=== PATIENT | male | born 1965 | race Caucasian/White ===

== ENCOUNTER 2017-01-01 21:48 | Inpatient (IN) | payer OTHER ==
[~2017-01-01] VITALS: Ht 188 cm; Wt 107.2 kg
--- NOTE | 2017-01-01 23:51 | ERA ---
ER Documentation Chief Complaint Date/Time DATE: 01/01/17 TIME: 23:50 Chief Complaint LEFT ARM CELLULITIS AND ARM SWELLING WITH DRAINAGE FROM IVD USE. HPI The patient is a 51-year-old male, presenting with left arm redness, pain, yellowish discharge after IV drug abuse about a week ago. He denies fever, chills, neck pain, chest pain, abdominal pain, vomiting, dysuria, diarrhea, constipation. He smokes, drinks, does illicit drug Past medical history/surgical history: ROS All systems reviewed and are negative except as per history of present illness. Allergies Allergies: Coded Allergies: No Known Allergy (Unverified , 01/01/17) PMhx/Soc Medical and Surgical Hx: pt denies Surgical Hx History of Surgery: No Anesthesia Reaction: No Hx Neurological Disorder: No Hx Respiratory Disorders: No Hx Cardiac Disorders: No Hx Psychiatric Problems: No Hx Miscellaneous Medical Probl: Yes (cellulitis, unhealing abrasions/ skin tears) Hx Alcohol Use: No Hx Substance Use: Yes (distant hx of IV drug use) Hx Tobacco Use: Yes (3-5 cigs/ day) Smoking Status: Current every day smoker Physical Exam Vitals Vital Signs Date Time Temp Pulse Resp B/P Pulse Ox O2 Delivery O2 Flow Rate FiO2 01/02/17 01:55 98.9 93 12 121/73 99 Room Air 01/01/17 22:03 99.3 102 21 129/78 99 Physical Exam Const: No acute distress. Head: Atraumatic. Eyes: Normal Conjunctiva. ENT: Normal External Ears, Nose and Mouth. Neck: Full range of motion. No meningismus. Resp: Clear to auscultation bilaterally. Cardio: Regular rate and rhythm, no murmurs. Abd: Soft, non distended, normal bowel sounds, non tender. Skin: Chest and back erythematous, no vesicle, no pustules, no petechia Back: No midline or flank tenderness. Ext: Left arm is erythematous, edematous with yellowish discharge Neur: Awake and alert. No focal deficit Psych: Normal Mood and Affect. Result Diagram: 01/02/17 0135 01/02/17134 Results 24 hrs Laboratory Tests Test 01/02/17 01:35 Alanine Aminotransferase (ALT/SGPT) 174IU/L Albumin 2.8g/dl Albumin/Globulin Ratio 0.49 Alkaline Phosphatase 517IU/L Anion Gap 19 Aspartate Amino Transf (AST/SGOT) 693IU/L Basophils # 0.010^3/ul Basophils % 0.2% Blood Urea Nitrogen 18mg/dl Calcium Level 8.0mg/dl Carbon Dioxide Level 26mmol/L Chloride Level 86mmol/L Creatinine 0.79mg/dl Direct Bilirubin 1.80mg/dl Eosinophils # 0.110^3/ul Eosinophils % 0.3% Globulin 5.70g/dl Glucose Level 81mg/dl Hematocrit 36.1% Hemoglobin 12.4g/dl Indirect Bilirubin 0.8mg/dl Lymphocytes # 1.610^3/ul Lymphocytes % 6.1% Mean Corpuscular Hemoglobin 29.7pg Mean Corpuscular Hemoglobin Concent 34.3g/dl Mean Corpuscular Volume 86.6fl Mean Platelet Volume 10.4fl Monocytes # 1.110^3/ul Monocytes % 4.2% Neutrophils # 22.110^3/ul Neutrophils % 85.5% Nucleated Red Blood Cells # 0.010^3/ul Nucleated Red Blood Cells % 0.0/100WBC Platelet Count 51060^3/UL Potassium Level 4.6mmol/L Red Blood Count 4.1710^6/ul Red Cell Distribution Width 13.4% Sodium Level 126mmol/L Total Bilirubin 2.6mg/dl Total Protein 8.5g/dl Troponin I < 0.012ng/ml White Blood Count 25.810^3/ul Current Medications Medications (Trade) Dose Ordered Sig/[place] Route PRN Reason Start Time Stop Time Status Last Admin Dose Admin Vancomycin HCl 250 ml @ 125 mls/hr ONCE IVPB 01/02/17 00:30 01/02/17 02:29 DC Piperacillin Sod/ Tazobactam Sod (Zosyn 3.375gm/ 100 ml (Pmx)) 100 ml @ 200 mls/hr ONCE ONCE IVPB 01/02/17 00:30 01/02/17 00:59 DC Lidocaine (Xylocaine 1% (Mdv) 20 ml) 20 ml ONCE ONCE SC 01/02/17 01:30 01/02/17 01:31 DC Procedures/[place] [id number] Radiology Main Line: [phone] DIAGNOSTIC IMAGING REPORT Patient: CALIXTO HARRY : 1965 Age: 51 Sex: M MR #: [id number] DOS: 01/01/17 2359 Ordering MD: JACKSON MCDONNELL MD Location: E/R Room/Bed: PROCEDURE: XR Chest. CLINICAL INDICATION: Possible sepsis. TECHNIQUE: Single frontal view of the chest was obtained COMPARISON: None FINDINGS: The heart and mediastinum are within normal limits. The lungs are clear. There is no pleural effusion or pneumothorax. IMPRESSION: No acute disease. RPTAT: [facility]U Cristian Purcell, Physician Date Time Electronically viewed and signed by Crsitian Purcell Physician on 01/02/2017 01:49 RS/ CC: JACKSON MCDONNELL MD [place] [id number] Radiology Main Line: [phone] DIAGNOSTIC IMAGING REPORT Patient: CALIXTO HARRY : 1965 Age: 51 Sex: M MR #: [id number] DOS: 01/02/17 0000 Ordering MD: JACKSON MCDONNELL MD Location: E/R Room/Bed: PROCEDURE: US Upper extremity Venous. CLINICAL INDICATION: Left upper extremity swelling. Possible deep venous thrombosis. TECHNIQUE: Multiple sonographic images of the left upper extremity deep venous system was obtained utilizing grayscale, color-flow, compressive sonography and doppler imaging with augmentation. COMPARISON: None. FINDINGS: There is normal compressibility / flow within the left internal jugular, subclavian, axillary, brachial, radial, ulnar, cephalic, and basilic veins. IMPRESSION: No sonographic evidence for deep venous thrombosis of the left upper extremity. RPTAT:HJJR Rome Palmer, Physician Date Time Electronically viewed and signed by Rome Palmer, Physician on 01/02/2017 01:00 JR/ CC: JACKSON MCDONNELL MD EKG: Read by emergency physician Rate/Rhythm: Normal Sinus Rhythm 91 beats/min QRS, ST, T-waves: No ST elevation, no T inversion, low voltage QRS Impression: Abnormal EKG MEDICAL MAKING DECISION: The patient is a 51-year-old male, presenting with acute left upper extremity, chest, back cellulitis, acute hyponatremia. He was treated with vancomycin IV, Zosyn IV. Lactic acid level is pending at the time of dictation. The differential diagnoses considered include but are not limited to fasciitis, abscess, gangrene, endocarditis Departure Diagnosis: Primary Impression: Cellulitis of left upper extremity Additional Impressions: Cellulitis of chest wall Cellulitis of back Anemia Thrombocytopenia Hyponatremia Abnormal LFTs Condition: Stable Comments I discussed the findings with the patient. I discussed the patient with the on- call hospitalist Dr. Ross who was made aware of the lab, the treatment, the patient condition. The patient is admitted to medical surgery bed at 3:15 AM JACKSON MCDONNELL MD Jan 01, 2017 23:50
[2017-01-02] MEDS ORDERED: PIPER-TAZO 3.375 GM IV (PMX) 100 ML IVPB ONE (00:30)
[2017-01-02] MEDS ORDERED: VANCOMYCIN 1 GM (PMX) 250 ML IVPB SCH (00:30)
--- NOTE | 2017-01-02 01:00 | RADRPT ---
PROCEDURE: US Upper extremity Venous. CLINICAL INDICATION: Left upper extremity swelling. Possible deep venous thrombosis. TECHNIQUE: Multiple sonographic images of the left upper extremity deep venous system was obtained utilizing grayscale, color-flow, compressive sonography and doppler imaging with augmentation. COMPARISON: None. FINDINGS: There is normal compressibility / flow within the left internal jugular, subclavian, axillary, brach ial, radial, ulnar, cephalic, and basilic veins. IMPRESSION: No sonographic evidence for deep venous thrombosis of the left upper extremity. RPTAT:HJJR Physician Brandon Date Time Electronically viewed and signed by Physician Brandon on 01/02/2017 01:00 /
[2017-01-02] MEDS ORDERED: LIDOCAINE 1% (MDV) 20 ML INJ SC ONE ×2 (01:30→05:30)
[2017-01-02 01:46] LABS: ABNORMAL IP MESSAGE 1; ADD SCAN DIFF NO; BASOPHILS % 0.2 % (0.0-2.0); EOSINOPHILS # 0.1 10^3/ul (0.0-0.5); EOSINOPHILS % 0.3 % (0.0-7.0); HEMATOCRIT 36.1 % (42.0-52.0); HEMOGLOBIN 12.4 g/dl (14.0-18.0); LYMPHOCYTES # 1.6 10^3/ul (0.8-2.9); LYMPHOCYTES % 6.1 % (15.0-51.0); MEAN CORPUSCULAR HEMOGLOBIN 29.7 pg (29.0-33.0); MEAN CORPUSCULAR HGB CONC 34.3 g/dl (32.0-37.0); MEAN CORPUSCULAR VOLUME 86.6 fl (82.0-101.0); MEAN PLATELET VOLUME 10.4 fl (7.4-10.4); MONOCYTE # 1.1 10^3/ul (0.3-0.9); MONOCYTES % 4.2 % (0.0-11.0); NEUTROPHIL # 22.1 10^3/ul (1.6-7.5); NEUTROPHILS % 85.5 % (39.0-77.0); PLATELET COUNT 133 10^3/UL (140-415); RED BLOOD COUNT 4.17 10^6/ul (4.70-6.10); RED CELL DISTRIBUTION WIDTH 13.4 % (11.5-14.5); WHITE BLOOD COUNT 25.8 10^3/ul (4.8-10.8)
--- NOTE | 2017-01-02 01:50 | RADRPT ---
PROCEDURE: XR Chest. CLINICAL INDICATION: Possible sepsis. TECHNIQUE: Single frontal view of the chest was obtained COMPARISON: None FINDINGS: The heart and mediastinum are within normal limits. The lungs are clear. There is no pleural effusion or pneumothorax. IMPRESSION: No acute disease. RPTAT: UU Physician Jaya Date Time Electronically viewed and signed by Cristian Purcell Physician on 01/02/2017 01:49 RS/
[2017-01-02 01:56] LABS: ALBUMIN 2.8 g/dl (3.3-4.9); CHLORIDE 86 mmol/L (97-110); SODIUM 126 mmol/L (135-144)
[2017-01-02 01:57] LABS: POTASSIUM 4.6 mmol/L (3.5-5.1)
[2017-01-02 01:58] LABS: ASPARTATE AMINO TRANSFERASE 693 IU/L (15-46); BILIRUBIN,INDIRECT 0.8 mg/dl (0-1.1); BILIRUBIN,TOTAL 2.6 mg/dl (0.2-1.3); CREATININE 0.79 mg/dl (0.61-1.24)
[2017-01-02 01:59] LABS: ALANINE AMINOTRANSFERASE 174 IU/L (13-69); ALBUMIN/GLOBULIN RATIO 0.49; ALKALINE PHOSPHATASE 517 IU/L (42-121); ANION GAP 19 (8-16); BLOOD UREA NITROGEN 18 mg/dl (7-20); CARBON DIOXIDE 26 mmol/L (21-31); GLUCOSE 81 mg/dl (70-220); TOTAL PROTEIN 8.5 g/dl (6.1-8.1)
[2017-01-02 02:44] LABS: TROPONIN-I < 0.012 ng/ml (0.00-0.12)
[2017-01-02 03:30] LABS: ADD UMIC YES; URINE BILIRUBIN (Dip) 2+ (NEGATIVE); URINE BLOOD (Dip) TRACE (NEGATIVE); URINE COLOR AMBER (YELLOW); URINE GLUCOSE (Dip) NEGATIVE (NEGATIVE); URINE KETONES (Dip) NEGATIVE (NEGATIVE); URINE LEUKOCYTE ESTERASE (Dip) NEGATIVE (NEGATIVE); URINE NITRITE (Dip) NEGATIVE (NEGATIVE); URINE TOTAL PROTEIN (Dip) NEGATIVE (NEGATIVE); URINE UROBILINOGEN (Dip) >8.0 E.U./dL (0.1-1.0)
[2017-01-02 03:38] LABS: ICTOTEST POSITIVE (NEGATIVE)
[2017-01-02 03:39] LABS: BACTERIA,URINE RARE; SQUAMOUS EPITHELIAL CELL,UR RARE; URINE RBCS 0-2 /HPF (0)
[2017-01-02 03:49] LABS: INR 1.33; PARTIAL THROMBOPLASTIN TIME 30.9 Sec (25.0-35.0); PROTIME 16.6 Sec (12.2-14.2); PT RATIO 1.3
[2017-01-02 04:26] VITALS: TEMP 98.9
[2017-01-02 04:53] VITALS: Ht 188 cm; Wt 107.2 kg
[2017-01-02 04:54] VITALS: BP 111/67; PULSE 98; RESP 18
[2017-01-02] MEDS ORDERED: ACETAMINOPHEN 325 MG TAB PO PRN (05:30)
[2017-01-02] MEDS ORDERED: LORAZEPAM 2 MG INJ IM PRN (05:30)
[2017-01-02 05:41] VITALS: BP 111/67; RESP 20
[2017-01-02] MEDS: CLINDAMYCIN 300 MG INJ IM SCH ×3 (06:00→14:50)
[2017-01-02] MEDS: CEPHALEXIN 500 MG CAP PO SCH ×4 (06:00→17:11)
[2017-01-02 07:38] VITALS: BP 110/51; RESP 18
--- NOTE | 2017-01-02 11:41 | HP ---
Date/Time of Note Date/Time of Note DATE: 01/02/17 TIME: 11:34 Assessment/Plan Lines/Catheters IV Catheter Type (from Nrs): Saline Lock Urinary Cath still in place: No Assessment/Plan Assessment/Plan IMPRESSION 1. Left arm wound/cellulitis, s/p IVDU - Pt does not have peripheral line. Will start IV abx once PICC line is placed. In the meantime, oral abx - f/u culture results - pain mgmt 2. Sepsis 2/2 above - mgmt as above 3. IVDU - SW to help pt find facilities for his addiction 4. Abnormal LFTs - will check Hep panel - f/u RUQ u/s 5. Hyponatremia -NS IV HPI/ROS Admit Date/Time Admit Date/Time Jan 02, 2017 at 03:10 Hx of Present Illness The patient is a 51-year-old male, presenting with left arm redness, pain, yellowish discharge after IV drug abuse about a week ago. He denies fever, chills, neck pain, chest pain, abdominal pain, vomiting, dysuria, diarrhea, constipation. He smokes, drinks, does illicit drug PMH/Family/Social Social History Smoking Status: Current every day smoker Exam/Review of Systems Vital Signs Vitals Vital Signs Date Time Temp Pulse Resp B/P Pulse Ox O2 Delivery O2 Flow Rate FiO2 01/02/17 07:38 98.0 82 18 110/51 98 01/02/17 04:54 Room Air Intake and Output 01/01/17 01/01/17 01/02/17 15:00 23:00 07:00 Intake Total 240 ml Output Total 300 ml Balance -60 ml Labs Result Diagram: 01/02/17 0135 01/02/17 0135 Medications Medications Current Medications Clindamycin Phosphate (Cleocin) 600 mg Q8 IM Last administered on 01/02/17 09: 45; Admin Dose 600 MG; Start 01/02/17 at 06:00 Cephalexin (Keflex) 500 mg Q6 PO Last administered on 01/02/17 09:45; Admin Dose 500 MG; Start 01/02/17 at 06:00 Acetaminophen (Tylenol Tab) 650 mg Q4H PRN PO PAIN AND OR ELEVATED TEMP; Start 01/02/17 at 05:30 Lorazepam (Ativan) 1 mg Q2H PRN IM AGITATIONS; Start 01/02/17 at 05:30 CATHY GALLAGHER MD Jan 02, 2017 11:40
[2017-01-02 11:53] LABS: HAAIG REFLEX REFLEX FILED
[2017-01-02] MEDS: SODIUM CHLORIDE 1 GM TAB PO SCH ×3 (13:00→20:19)
[2017-01-02 13:27] LABS: HEPATITIS B CORE ANTIBODY NEGATIVE (NEGATIVE)
[2017-01-02] MEDS ORDERED: VANCOMYCIN IV PER PHARMACY XX SCH (17:30)
[2017-01-02] MEDS: CEFEPIME 2GM/50 ML (PMX) 50 ML IVPB SCH (18:57)
[2017-01-02 19:05] VITALS: BP 120/57; RESP 20
[2017-01-02] MEDS ORDERED: VANCOMYCIN 2 GM in SOD CHLORIDE 0.9% 500 ML IVPB SCH (20:00)
[2017-01-03 06:02] LABS: ADD SCAN DIFF NO
[2017-01-03 06:15] LABS: BASOPHILS % 0.2 % (0.0-2.0); EOSINOPHILS # 0.1 10^3/ul (0.0-0.5); EOSINOPHILS % 0.9 % (0.0-7.0); HEMATOCRIT 34.7 % (42.0-52.0); HEMOGLOBIN 11.4 g/dl (14.0-18.0); LYMPHOCYTES # 1.2 10^3/ul (0.8-2.9); MEAN CORPUSCULAR HEMOGLOBIN 29.8 pg (29.0-33.0); MEAN CORPUSCULAR HGB CONC 32.9 g/dl (32.0-37.0); MEAN CORPUSCULAR VOLUME 90.6 fl (82.0-101.0); MONOCYTE # 0.7 10^3/ul (0.3-0.9); MONOCYTES % 5.8 % (0.0-11.0); NEUTROPHIL # 9.9 10^3/ul (1.6-7.5); NEUTROPHILS % 81.2 % (39.0-77.0); PLATELET COUNT 119 10^3/UL (140-415); RED BLOOD COUNT 3.83 10^6/ul (4.70-6.10); RED CELL DISTRIBUTION WIDTH 13.8 % (11.5-14.5); WHITE BLOOD COUNT 12.2 10^3/ul (4.8-10.8)
[2017-01-03 08:00] VITALS: BP 112/68; PULSE 67; RESP 18
[2017-01-03] MEDS: VANCOMYCIN 1.75 GM in SOD CHLORIDE 0.9% 500 ML IVPB SCH ×3 (08:00→21:10)
[2017-01-03 08:29] LABS: POTASSIUM 4.1 mmol/L (3.5-5.1)
[2017-01-03 08:31] LABS: CREATININE 0.78 mg/dl (0.61-1.24)
[2017-01-03 08:32] LABS: CALCIUM 7.5 mg/dl (8.4-10.2); MAGNESIUM 2.4 mg/dl (1.7-2.5); PHOSPHORUS 4.9 mg/dl (2.5-4.9)
[2017-01-03] MEDS: SODIUM CHLORIDE 1 GM TAB PO SCH (09:52)
[2017-01-03] MEDS: CEFEPIME 2GM/50 ML (PMX) 50 ML IVPB SCH ×2 (09:52→20:36)
--- NOTE | 2017-01-03 10:06 | RADRPT ---
PROCEDURE: US Abdomen and Retroperitoneum. CLINICAL INDICATION: Abdominal pain. TECHNIQUE: Multiple real-time longitudinal and transverse images were acquired of the patient's ab domen and retroperitoneum utilizing a curved array transducer. COMPARISON: No prior studies are available for comparison. FINDINGS: The liver is normal in size and diffusely heterogeneous in echogenicity. The liver has a normal smo oth surface. There is no focal hepatic lesion. Color Doppler and pulsed Doppler sonography demonstra te normal antegrade flow in the portal vein. The gallbladder is normal with no stones or wall thickening. The bile ducts are normal with the common bile duct measuring 4.2 mm in diameter. The spleen is enlarged measuring 15.9 cm in length. There is no focal splenic lesion. The pancreas is partially seen and is unremarkable. There is no free fluid. The right kidney measures 11.0 x 5.4 x 5.3 cm and the left kidney measures 12.4 x 5.6 x 5.3 cm. There is no renal mass. There is no hydronephrosis or calculus. The proximal abdominal aorta is not dilated. The mid and distal abdominal aorta are not visualized due to overlying bowel gas. IMPRESSION: 1. Heterogeneous liver which may indicate an infiltrative process. 2. Splenomegaly. 3. Mid and distal abdominal aorta not visualized. 4. Otherwise normal ultrasound of the abdomen and retroperitoneum. RPTAT: QQ .Modesto Bruce MD, Date Time Electronically viewed and signed by .Modesto Bruce MD, on 01/03/2017 10:05 .R/
[2017-01-03] MEDS: SOD CHLORIDE 0.9% 1,000 ML IV SCH ×2 (14:30→21:31)
--- NOTE | 2017-01-03 14:34 | PN ---
Date/Time of Note Date/Time of Note DATE: 01/03/17 TIME: 14:24 Assessment/Plan VTE Prophylaxis VTE Prophylaxis Intervention: ambulation Lines/Catheters IV [facility] Saline Lock Urinary Cath still in place: No Assessment/Plan Chief Complaint/Hosp Course 1.Sepsis 2/2 Left arm wound/cellulitis, s/p IVDU -cont IV Abx with Vanco and Cefepime - f/u culture results - pain mgmt 2. Hepatitis 2/2 Hep C -Abd US showed a heterogeneous liver -should seek out-pt Rx 3. IVDU - SW to help pt find facilities for his addiction -Pt requesting Methadone and states that he gets it from a clinic but has not provided the clinic info as of yet 4. Hyponatremia -NS IV PPx- Ambulate Problems: Subjective 24 Hr Interval Summary Skin: erythema Exam/Review of Systems Vital Signs Vitals Vital Signs Date Time Temp Pulse Resp B/P Pulse Ox O2 Delivery O2 Flow Rate FiO2 01/03/17 08:00 97.5 67 18 112/68 94 Room Air Intake and Output 01/02/17 01/02/17 01/03/17 15:00 23:00 07:00 Intake Total 1370 ml 1300 ml Output Total 700 ml 1500 ml Balance 670 ml -200 ml Exam Constitutional: alert Respiratory: clear to auscultation Cardiovascular: regular rate and rhythm Gastrointestinal: soft, No distended Musculoskeletal: No nl extremities to inspection Results Result Diagram: 01/03/17 0510 01/03/17 0450 Results 24 hrs Laboratory Tests Test 01/03/17 04:50 01/03/17 05:10 Anion Gap 15 Blood Urea Nitrogen 15 Calcium Level 7.5 L Carbon Dioxide Level 25 Chloride Level 96 #L Creatinine 0.78 Glucose Level 88 Magnesium Level 2.4 Phosphorus Level 4.9 Potassium Level 4.1 Sodium Level 132 L Basophils # 0.0 Basophils % 0.2 Eosinophils # 0.1 Eosinophils % 0.9 HIV (1&2) Antibody NEGATIVE Hematocrit 34.7 L Hemoglobin 11.4 L Lymphocytes # 1.2 Lymphocytes % 10.0 L Mean Corpuscular Hemoglobin 29.8 Mean Corpuscular Hemoglobin Concent 32.9 Mean Corpuscular Volume 90.6 Mean Platelet Volume 10.0 Monocytes # 0.7 Monocytes % 5.8 Neutrophils # 9.9 H Neutrophils % 81.2 H Nucleated Red Blood Cells # 0.0 Nucleated Red Blood Cells % 0.0 Platelet Count 119 L Red Blood Count 3.83 L Red Cell Distribution Width 13.8 White Blood Count 12.2 #H Medications Medications Current Medications Acetaminophen (Tylenol Tab) 650 mg Q4H PRN PO PAIN AND OR ELEVATED TEMP Last administered on 01/03/17 00:56; Admin Dose 650 MG; Start 01/02/17 at 05:30 Lorazepam 1 mg 1 mg Q2H PRN IM AGITATIONS; Start 01/02/17 at 05:30 Cefepime HCl 50 ml @ 100 mls/hr Q12 IVPB Last administered on 01/03/17 09:52; Admin Dose 100 MLS/HR; Start 01/02/17 at 18:30 Vancomycin HCl/ Sodium Chloride (Vancocin/NS) 500 ml @ 125 mls/hr Q12H IVPB Last administered on 01/03/17 09:52; Admin Dose 125 MLS/HR; Start 01/03/17 at 08: 00 Miscellaneous Information (*Rx Drug Level Order Reminder*) VANCOMYCIN TROUGH LEVEL... ONCE ONCE XX ; Start 01/04/17 at 07:00; Stop 01/04/17 at 07:01 DEX RODRIGUEZ Jan 03, 2017 14:34
[2017-01-03 20:38] VITALS: BP 131/58; RESP 18
[2017-01-04] MEDS: SOD CHLORIDE 0.9% 1,000 ML IV SCH ×3 (03:53→22:30)
[2017-01-04 07:30] LABS: ADD SCAN DIFF NO
[2017-01-04 07:34] LABS: BASOPHILS % 0.7 % (0.0-2.0); EOSINOPHILS # 0.1 10^3/ul (0.0-0.5); EOSINOPHILS % 1.6 % (0.0-7.0); HEMATOCRIT 38.7 % (42.0-52.0); HEMOGLOBIN 12.3 g/dl (14.0-18.0); LYMPHOCYTES # 0.9 10^3/ul (0.8-2.9); LYMPHOCYTES % 14.8 % (15.0-51.0); MEAN CORPUSCULAR HEMOGLOBIN 29.3 pg (29.0-33.0); MEAN CORPUSCULAR HGB CONC 31.8 g/dl (32.0-37.0); MEAN CORPUSCULAR VOLUME 92.1 fl (82.0-101.0); MEAN PLATELET VOLUME 9.9 fl (7.4-10.4); MONOCYTE # 0.4 10^3/ul (0.3-0.9); MONOCYTES % 6.4 % (0.0-11.0); NEUTROPHIL # 4.5 10^3/ul (1.6-7.5); NEUTROPHILS % 74.5 % (39.0-77.0); PLATELET COUNT 104 10^3/UL (140-415); RED CELL DISTRIBUTION WIDTH 13.8 % (11.5-14.5); WHITE BLOOD COUNT 6.1 10^3/ul (4.8-10.8)
[2017-01-04 07:40] VITALS: BP 125/69; RESP 18
[2017-01-04 07:50] LABS: POTASSIUM 4.5 mmol/L (3.5-5.1)
[2017-01-04 07:52] LABS: CREATININE 0.74 mg/dl (0.61-1.24)
[2017-01-04 07:53] LABS: CALCIUM 7.4 mg/dl (8.4-10.2)
[2017-01-04] MEDS: CEFEPIME 2GM/50 ML (PMX) 50 ML IVPB SCH ×2 (09:50→20:43)
--- NOTE | 2017-01-04 09:52 | PN ---
Date/Time of Note Date/Time of Note DATE: 01/04/17 TIME: 09:50 Assessment/Plan VTE Prophylaxis VTE Prophylaxis Intervention: SCD's Lines/Catheters IV Catheter Type (from Nrs): Saline Lock Urinary Cath still in place: No Assessment/Plan Assessment/Plan 1.Sepsis 2/2 Left arm wound/cellulitis, s/p IVDU -cont IV Abx with Vanco and Cefepime - culture results pending - pain mgmt 2. Hepatitis 2/2 Hep C -Abd US showed a heterogeneous liver -should seek out-pt Rx 3.H/o IVDU - guidance services coordinator consult -Pt requesting Methadone and states that he gets it from a clinic but has not provided the clinic info as of yet - SW to help with it 4. Hyponatremia -NS IV- improving PPx- Ambulate Subjective 24 Hr Interval Summary Free Text/Dictation methadone prescription has not been verifed yet, c/o Pain Exam/Review of Systems Vital Signs Vitals Vital Signs Date Time Temp Pulse Resp B/P Pulse Ox O2 Delivery O2 Flow Rate FiO2 01/04/17 07:40 97.6 73 18 125/69 98 01/03/17 08:00 Room Air Intake and Output 01/03/17 01/03/17 01/04/17 15:00 23:00 07:00 Intake Total 1520 ml 1645 ml Output Total 1350 ml 700 ml Balance 170 ml 945 ml Exam Constitutional: alert Respiratory: clear to auscultation Cardiovascular: regular rate and rhythm Gastrointestinal: soft, No distended Musculoskeletal: No nl extremities to inspection Results Result Diagram: 01/04/17 0700 01/04/17 0700 Results 24 hrs Laboratory Tests Test 01/04/17 07:00 Anion Gap 15 Basophils # 0.0 Basophils % 0.7 Blood Urea Nitrogen 13 Calcium Level 7.4 L Carbon Dioxide Level 24 Chloride Level 101 Creatinine 0.74 Eosinophils # 0.1 Eosinophils % 1.6 Glucose Level 102 Hematocrit 38.7 L Hemoglobin 12.3 L Lymphocytes # 0.9 Lymphocytes % 14.8 L Mean Corpuscular Hemoglobin 29.3 Mean Corpuscular Hemoglobin Concent 31.8 L Mean Corpuscular Volume 92.1 Mean Platelet Volume 9.9 Monocytes # 0.4 Monocytes % 6.4 Neutrophils # 4.5 Neutrophils % 74.5 Nucleated Red Blood Cells # 0.0 Nucleated Red Blood Cells % 0.0 Platelet Count 104 L Potassium Level 4.5 Red Blood Count 4.20 L Red Cell Distribution Width 13.8 Sodium Level 135 Vancomycin Level Trough 20.5 *H White Blood Count 6.1 # Medications Medications Current Medications Acetaminophen (Tylenol Tab) 650 mg Q4H PRN PO PAIN AND OR ELEVATED TEMP Last administered on 01/03/17 00:56; Admin Dose 650 MG; Start 01/02/17 at 05:30 Lorazepam 1 mg 1 mg Q2H PRN IM AGITATIONS; Start 01/02/17 at 05:30 Cefepime HCl 50 ml @ 100 mls/hr Q12 IVPB Last administered on 01/03/17 20:36; Admin Dose 100 MLS/HR; Start 01/02/17 at 18:30 Sodium Chloride 1,000 ml @ 125 mls/hr Q8H IV Last administered on 01/04/17 03: 53; Admin Dose 125 MLS/HR; Start 01/03/17 at 14:30 Vancomycin HCl/ Sodium Chloride (Vancocin/NS) 250 ml @ 83.333 mls/ hr Q12H IVPB ; Start 01/04/17 at 12:00 ROSS TRUJILLO MD Jan 04, 2017 09:52
[2017-01-04] MEDS: METHADONE 10 MG TAB PO SCH (13:46)
[2017-01-04] MEDS: VANCOMYCIN 1.25 GM in SOD CHLORIDE 0.9% 250 ML IVPB SCH ×2 (13:54→23:53)
--- NOTE | 2017-01-04 14:31 | CONS ---
DATE OF ADMISSION: 01/02/2017 DATE OF CONSULTATION: 01/04/2017 HISTORY OF PRESENT ILLNESS: This is a 51-year-old gentleman who has a longstanding history of IV dr ug abuse, including heroin and speed, who presented to [facility] with a celluliti s of his left upper extremity, which he states began approximately 3 days prior to this presentation . 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 The patient has a longstanding history of IV drug abuse with heroin for some 20 years. He has been incarcerated on numerous occasions; the la st time was approximately 1 year ago. He has been using speed intravenously and smoking it over wilbur t manager intermediate period of time also. He has never had an extended period of time that he has been off o f heroin. The last time he used he states was approximately 1 week prior to this presentation. Vitaliy tionally, patient states that he was smoking marijuana on occasion, but he does not drink alcohol. Describes his left arm pain as a throbbing type of discomfort without radiation, which is relieved a t this time with methadone. Denies nausea, vomiting, chest pain, shortness of breath, cough, rigors . No documented fevers. He does have a past medical history of hepatitis C. States the last time he had an HIV checked was when he was incarcerated approximately 1 year ago. It is unknown at this time whether or not he shares needles. MEDICATIONS: Please refer to reconciliation. ALLERGIES: NO KNOWN DRUG ALLERGIES. MAJOR MEDICAL PROBLEMS IN THE PAST: Essentially noncontributory and unremarkable per patient. 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 Lives in [facility]. Has recently moved [facility] where he usually gets his heroin and speed from. FAMILY HISTORY: Noncontributory. One younger brother who of complications related to drug abu se. REVIEW OF SYSTEMS: A 12-point review of systems noncontributory. PHYSICAL EXAMINATION: VITAL SIGNS: He is afebrile, with vital signs stable. HEENT: He is normocephalic, atraumatic. Anicteric, acyanotic. VITAL SIGNS: On examination, blood pressure 125/69, pulse 73 and regular, respirations of 18, tempe rature 99.3 degrees. EXTREMITIES: Left upper extremity is 4+ with circumferential erythema and edema. He has an open ap proximately 5 x 5 wound with eschar over the top on his left posterior wrist down to PIP joints. Th ere is no gross evidence of discharge or flocculence. ASSESSMENT AND PLAN: This gentleman has a longstanding history of IV drug abuse, heroin and speed. He also smokes speed. He has a history also of hepatitis C. Supposedly negative for HIV. He has been on methadone for a prolonged period of time, approximately a year. He started off on 100 mg an d has been tapered down to 70 mg, but he admits he has been using heroin and speed over this period of time. I agree restart his methadone at 70 mg daily. He states that he is not in pain; therefore , will not him on any p.r.n. breakthrough pain medications. Dictated By: LAMBERTO SUGGS MD, LP/MARY JO Conf#: [id number] DID#: [id number]
[2017-01-04 19:48] VITALS: BP 124/74; RESP 20
[2017-01-05] MEDS: SOD CHLORIDE 0.9% 1,000 ML IV SCH (05:50)
[2017-01-05 07:52] VITALS: BP 114/61; RESP 18
[2017-01-05] MEDS: CEFEPIME 2GM/50 ML (PMX) 50 ML IVPB SCH (09:13)
[2017-01-05] MEDS: METHADONE 10 MG TAB PO SCH (09:14)
[2017-01-05] MEDS: VANCOMYCIN 1.25 GM in SOD CHLORIDE 0.9% 250 ML IVPB SCH (12:12)
--- NOTE | 2017-01-05 15:38 | PN ---
Date/Time of Note Date/Time of Note DATE: 01/05/17 TIME: 15:34 Assessment/Plan VTE Prophylaxis VTE Prophylaxis Intervention: SCD's Lines/Catheters IV Catheter Type (from Nrsg): Peripheral IV Urinary Cath still in place: No Assessment/Plan Assessment/Plan 1.Sepsis 2/2 Left arm wound/cellulitis, H/o IVDA -cont IV Abx with Vanco and Cefepime - Cuture results pending Pain management following for methadone 2. Hepatitis 2/2 Hep C -Abd US showed a heterogeneous liver -should seek out-pt Rx 3.H/o IVDU - social and human services assistant consult -Pt requesting Methadone and states that he gets it from a clinic but has not provided the clinic info as of yet - SW to help with it 4. Hyponatremia -NS IV- improving PPx- Ambulate Subjective 24 Hr Interval Summary Free Text/Dictation pt afebrile, BP stable , LUE Cellulitis still there, TTP ,hot on touch Exam/Review of Systems Vital Signs Vitals Vital Signs Date Time Temp Pulse Resp B/P Pulse Ox O2 Delivery O2 Flow Rate FiO2 01/05/17 07:52 97.8 78 18 114/61 98 01/03/17 08:00 Room Air Intake and Output 01/04/17 01/04/17 01/05/17 15:00 23:00 07:00 Intake Total 225 ml 1575 ml 1230 ml Output Total 850 ml 1000 ml Balance 225 ml 725 ml 230 ml Exam Constitutional: alert Respiratory: clear to auscultation Cardiovascular: regular rate and rhythm Gastrointestinal: soft, No distended Musculoskeletal: No nl extremities to inspection Results Result Diagram: 01/04/17 0700 01/04/17 0700 Medications Medications Current Medications Acetaminophen (Tylenol Tab) 650 mg Q4H PRN PO PAIN AND OR ELEVATED TEMP Last administered on 01/03/17 00:56; Admin Dose 650 MG; Start 01/02/17 at 05:30 Lorazepam 1 mg 1 mg Q2H PRN IM AGITATIONS; Start 01/02/17 at 05:30 Cefepime HCl 50 ml @ 100 mls/hr Q12 IVPB Last administered on 01/05/17 09:13; Admin Dose 100 MLS/HR; Start 01/02/17 at 18:30 Vancomycin HCl/ Sodium Chloride (Vancocin/NS) 250 ml @ 83.333 mls/ hr Q12H IVPB Last administered on 01/05/17 12:12; Admin Dose 83.333 MLS/HR; Start at 12:00 Methadone HCl (Methadone) 70 mg DAILY PO Last administered on 01/05/17 09:14; Admin Dose 70 MG; Start 01/04/17 at 12:30 Miscellaneous Information (*Rx Drug Level Order Reminder*) 1 ONCE ONCE XX ; Start 01/05/17 at 23:00; Stop 01/05/17 at 23:01 ROSS TRUJILLO MD Jan 05, 2017 15:38
[2017-01-05 20:08] VITALS: BP 120/73; RESP 18
[2017-01-06] MEDS: VANCOMYCIN 1.25 GM in SOD CHLORIDE 0.9% 250 ML IVPB SCH ×3 (01:05→23:23)
[2017-01-06 06:15] LABS: CREATININE 0.78 mg/dl (0.61-1.24)
[2017-01-06 07:13] VITALS: BP 105/58; RESP 18
[2017-01-06] MEDS: METHADONE 10 MG TAB PO SCH (09:12)
[2017-01-06 21:18] VITALS: BP 118/68; RESP 16
--- NOTE | 2017-01-06 21:21 | PN ---
Date/Time of Note Date/Time of Note DATE: 01/06/17 TIME: 21:20 Assessment/Plan VTE Prophylaxis VTE Prophylaxis Intervention: SCD's Lines/Catheters IV Catheter Type (from Nrsg): Peripheral IV Urinary Cath still in place: No Assessment/Plan Assessment/Plan 1.Sepsis 2/2 Left arm wound/cellulitis, H/o IVDA -cont IV Abx with Vanco and Cefepime - Cuture results pending Pain management following for methadone 2. Hepatitis 2/2 Hep C -Abd US showed a heterogeneous liver -should seek out-pt Rx 3.H/o IVDU - services rep consult -Pt requesting Methadone and states that he gets it from a clinic but has not provided the clinic info as of yet - SW to help with it 4. Hyponatremia -NS IV- improving PPx- Ambulate Subjective 24 Hr Interval Summary Free Text/Dictation pain controlled, on IV abx for LUE cellulitis Exam/Review of Systems Vital Signs Vitals Vital Signs Date Time Temp Pulse Resp B/P Pulse Ox O2 Delivery O2 Flow Rate FiO2 01/06/17 07:13 98.1 70 18 105/58 96 01/03/17 08:00 Room Air Intake and Output 01/05/17 01/05/17 01/06/17 15:00 23:00 07:00 Intake Total 1930 ml 1000 ml Output Total 1700 ml 2000 ml Balance 230 ml -1000 ml Exam Constitutional: alert Respiratory: clear to auscultation Cardiovascular: regular rate and rhythm Gastrointestinal: soft, No distended Musculoskeletal: No nl extremities to inspection Results Result Diagram: 01/04/17 0700 01/05/17 2315 Results 24 hrs Laboratory Tests Test 01/05/17 23:15 Blood Urea Nitrogen 14 Creatinine 0.78 Vancomycin Level Trough 14.6 Medications Medications Current Medications Acetaminophen (Tylenol Tab) 650 mg Q4H PRN PO PAIN AND OR ELEVATED TEMP Last administered on 01/03/17 00:56; Admin Dose 650 MG; Start 01/02/17 at 05:30 Lorazepam 1 mg 1 mg Q2H PRN IM AGITATIONS; Start 01/02/17 at 05:30 Vancomycin HCl/ Sodium Chloride (Vancocin/NS) 250 ml @ 83.333 mls/ hr Q12H IVPB Last administered on 01/06/17 12:25; Admin Dose 83.333 MLS/HR; Start at 12:00 Methadone HCl (Methadone) 70 mg DAILY PO Last administered on 01/06/17 09:12; Admin Dose 70 MG; Start 01/04/17 at 12:30 ROSS TRUJILLO MD Jan 06, 2017 21:21
[2017-01-07 07:19] VITALS: BP 108/70; RESP 16
[2017-01-07] MEDS: METHADONE 10 MG TAB PO SCH (08:57)
[2017-01-07] MEDS: NICOTINE (21 MG/24 HR) PATCH TRANSDERM SCH (11:11)
[2017-01-07] MEDS: traMADol 50 MG TAB PO PRN ×2 (11:11→20:44)
[2017-01-07] MEDS: VANCOMYCIN 1.25 GM in SOD CHLORIDE 0.9% 250 ML IVPB SCH (11:49)
--- NOTE | 2017-01-07 11:55 | PN ---
Date/Time of Note Date/Time of Note DATE: 01/07/17 TIME: 11:53 Assessment/Plan VTE Prophylaxis VTE Prophylaxis Intervention: SCD's Lines/Catheters IV Catheter Type (from Nrsg): Saline Lock Urinary Cath still in place: No Assessment/Plan Assessment/Plan 1.Sepsis 2/2 Left arm wound/cellulitis, H/o IVDA -cont IV Abx with Vanco and Cefepime - Cuture results pending Pain management following for methadone 2. Hepatitis 2/2 Hep C -Abd US showed a heterogeneous liver -should seek out-pt Rx 3.H/o IVDU - workforce services representative consult -Pt requesting Methadone and states that he gets it from a clinic but has not provided the clinic info as of yet - SW to help with it 4. Hyponatremia -NS IV- improving PPx- Ambulate Subjective 24 Hr Interval Summary Free Text/Dictation LUE cellulitis improving, BP stable, pain controlled Exam/Review of Systems Vital Signs Vitals Vital Signs Date Time Temp Pulse Resp B/P Pulse Ox O2 Delivery O2 Flow Rate FiO2 01/07/17 07:19 98.1 70 16 108/70 98 01/03/17 08:00 Room Air Intake and Output 01/06/17 01/06/17 01/07/17 15:00 23:00 07:00 Intake Total 970 ml 1090 ml Output Total 1600 ml 2000 ml Balance -630 ml -910 ml Exam Constitutional: alert Respiratory: clear to auscultation Cardiovascular: regular rate and rhythm Gastrointestinal: soft, No distended Musculoskeletal: No nl extremities to inspection Results Result Diagram: 01/04/17 0700 01/05/17 5894 Medications Medications Current Medications Acetaminophen (Tylenol Tab) 650 mg Q4H PRN PO PAIN AND OR ELEVATED TEMP Last administered on 01/03/17 00:56; Admin Dose 650 MG; Start 01/02/17 at 05:30 Lorazepam 1 mg 1 mg Q2H PRN IM AGITATIONS; Start 01/02/17 at 05:30 Vancomycin HCl/ Sodium Chloride (Vancocin/NS) 250 ml @ 83.333 mls/ hr Q12H IVPB Last administered on 01/07/17 11:49; Admin Dose 83.333 MLS/HR; Start at 12:00 Methadone HCl (Methadone) 70 mg DAILY PO Last administered on 01/07/17 08:57; Admin Dose 70 MG; Start 01/04/17 at 12:30 Tramadol HCl (Ultram) 100 mg Q6H PRN PO PAIN LEVEL 6-10 Last administered on 11:11; Admin Dose 100 MG; Start 01/07/17 at 10:00 Nicotine (Nicoderm 21 Mg/ 24hr) 1 patch DAILY TRANSDERM Last administered on 11:11; Admin Dose 1 PATCH; Start 01/07/17 at 10:30 ROSS TRUJILLO MD Jan 07, 2017 11:55
--- NOTE | 2017-01-07 11:57 | PDOCDIS ---
Discharge Instructions CONDITION Patient Condition: Good HOME CARE INSTRUCTIONS: Special Diet: regular ACTIVITY: Activity Restrictions: Slowly Increase Activity Rest between Activity Avoid heavy lifting Avoid Heavy Housework FOLLOW UP/APPOINTMENTS Appointments follow up with his own PMD through HMO insurance in 1-2 week ROSS TRUJILLO MD Jan 07, 2017 11:57
[2017-01-07] MEDS ORDERED: ACET500C5 PO (11:59)
[2017-01-07] MEDS ORDERED: METO10TA92 PO (11:59)
[2017-01-07] MEDS ORDERED: BACTDS PO (11:59)
--- NOTE | 2017-01-07 13:06 | PN ---
DATE: 01/07/2017 PAIN MANAGEMENT FOLLOWUP NOTE: I have had a conversation with Mr. Chew in so far as ongoing treatment of his heroin addiction. I have asked him to go from this hospital to the methadone maintenance clinic. He states that it op ens at 7 a.m. and it closes at 2 p.m. He is aware of the fact that he needs to get there early wher e there is a doctor available and "they treat me well there". Hopefully this gentleman will follow up with care. I have expressed to him if he becomes worse from a medical standpoint, he should seek immediate medical attention. Dictated By: LAMBERTO SUGGS MD, LP/MARY JO Conf#: [id number] DID#: [id number]
[2017-01-07 19:49] VITALS: BP 118/71; RESP 18
--- NOTE | 2017-01-07 21:57 | PN ---
Date/Time of Note Date/Time of Note DATE: 01/07/17 TIME: 21:56 Assessment/Plan VTE Prophylaxis VTE Prophylaxis Intervention: ambulation Lines/Catheters IV Catheter Type (from Nrsg): Saline Lock Urinary Cath still in place: No Assessment/Plan Assessment/Plan 1.Sepsis 2/2 Left arm wound/cellulitis, H/o IVDA -cont IV Abx with Vanco and Cefepime - Cuture results pending Pain management following for methadone 2. Hepatitis 2/2 Hep C -Abd US showed a heterogeneous liver -should seek out-pt Rx 3.H/o IVDU - vp client services consult -Pt requesting Methadone and states that he gets it from a clinic but has not provided the clinic info as of yet - SW to help with it 4. Hyponatremia -NS IV- improving PPx- Ambulate d/c to half-way on Wednesday Subjective 24 Hr Interval Summary Free Text/Dictation LUE pain and swelling improving , on IV abx Exam/Review of Systems Vital Signs Vitals Vital Signs Date Time Temp Pulse Resp B/P Pulse Ox O2 Delivery O2 Flow Rate FiO2 01/07/17 19:49 98.7 74 18 118/71 98 01/03/17 08:00 Room Air Intake and Output 01/06/17 01/06/17 01/07/17 15:00 23:00 07:00 Intake Total 970 ml 1090 ml Output Total 1600 ml 2000 ml Balance -630 ml -910 ml Results Result Diagram: 01/04/17 0700 01/05/17 2085 Medications Medications Current Medications Acetaminophen (Tylenol Tab) 650 mg Q4H PRN PO PAIN AND OR ELEVATED TEMP Last administered on 01/03/17 00:56; Admin Dose 650 MG; Start 01/02/17 at 05:30 Lorazepam 1 mg 1 mg Q2H PRN IM AGITATIONS; Start 01/02/17 at 05:30 Vancomycin HCl/ Sodium Chloride (Vancocin/NS) 250 ml @ 83.333 mls/ hr Q12H IVPB Last administered on 01/07/17 11:49; Admin Dose 83.333 MLS/HR; Start at 12:00 Methadone HCl (Methadone) 70 mg DAILY PO Last administered on 01/07/17 08:57; Admin Dose 70 MG; Start 01/04/17 at 12:30 Tramadol HCl (Ultram) 100 mg Q6H PRN PO PAIN LEVEL 6-10 Last administered on 20:44; Admin Dose 100 MG; Start 01/07/17 at 10:00 Nicotine (Nicoderm 21 Mg/ 24hr) 1 patch DAILY TRANSDERM Last administered on 11:11; Admin Dose 1 PATCH; Start 01/07/17 at 10:30 ROSS TRUJILLO MD Jan 07, 2017 21:57
[2017-01-08] MEDS: VANCOMYCIN 1.25 GM in SOD CHLORIDE 0.9% 250 ML IVPB SCH (00:11)
[2017-01-08] MEDS: NICOTINE (21 MG/24 HR) PATCH TRANSDERM SCH (09:00)
[2017-01-08] MEDS: METHADONE 10 MG TAB PO SCH (09:00)
[2017-01-08 09:07] VITALS: BP 124/72; RESP 18
--- NOTE | 2017-01-10 23:33 | DS ---
DATE OF ADMISSION: 01/02/2017 DATE OF DISCHARGE: 01/08/2017 FINAL DISCHARGE DIAGNOSES: 1. Left upper extremity cellulitis, causing severe sepsis. 2. Sepsis secondary to left upper arm cellulitis. 3. Hepatitis C. 4. History of intravenous drug abuse. 5. Hyponatremia secondary to hypovolemic hyponatremia. CONSULTATIONS DONE DURING THIS HOSPITALIZATION: 1. food counter worker consult for homelessness. 1. Pain management consult, Aleisha Tyler, for pain management. HOSPITAL COURSE: This is a 51-year-old male who has a history of hepatitis C and history of IV drug abuse who has been on methadone for pain control and rehabilitation. He was admitted because of le ft upper extremity cellulitis. The patient had a significant swelling on the left upper extremity f or which he had a left upper extremity Doppler venous ultrasound done, which was negative for any de ep venous thrombosis. The patient also had abdominal ultrasound done because of his abdominal pain, which revealed heterogenous liver with infiltrative process, splenomegaly, and history of hepatitis C. He was treated with IV antibiotics, Zosyn and vancomycin. He was seen by a licensed clinical social worker consu and was set up for jail placement upon discharge. DISPOSITION: To home. DISCHARGE CONDITION: Stable and improved compared to admission. DISCHARGE ACTIVITIES: As tolerated, slowly resume to the normal baseline activity. DISCHARGE DIET: Regular diet. DISCHARGE MEDICATIONS: 1. He is given a prescription of Bactrim-DS DS 1 tablet p.o. b.i.d. x10 days for his left upper ext remity cellulitis. 2. He is also given a prescription of Reglan. 3. Tylenol for pain control. DISCHARGE FOLLOWUP AND INSTRUCTIONS: The patient is to follow up with his pain management clinic fo r his methadone prescriptions and drug and he is also set up for some placement upon discharge by [facility] worker. Dictated By: ROSS TRUJILLO MD, KP/NTS Conf#: [id number] DID#: [id number] CC: CATHY GALLAGHER MD;*EndCC*
== END 2017-01-08 09:50 | disposition home or self-care (01) | DRG 872 ==
LOC: E/R 21:48 → MS2 01-02 03:10
PROVIDERS: ADMIT Internal Medicine; ATTEND Internal Medicine
DX: A41.9 Sepsis, unspecified organism (principal); E87.1 Hypo-osmolality and hyponatremia; L03.114 Cellulitis of left upper limb; B19.20 Unspecified viral hepatitis C without hepatic coma; Z59.0 Homelessness; F15.10 Other stimulant abuse, uncomplicated; F11.10 Opioid abuse, uncomplicated
CPT/HCPCS: 71010; 76700; 80048; 80053; 80202; 81001; 81003; 82565; 83605; 83735; 84100; 84484; 84520; 85025; 85610; 85730; 86703; 86704; 86706; 86709; 86803; 87040; 87086; 87340; 93005; 93971; J0692; J2543; J3370; J7030; J7040; J7050

== ENCOUNTER 2017-02-06 15:34 | Emergency (ER) | payer OTHER ==
[~2017-02-06] VITALS: Ht 188 cm; Wt 107.0 kg
[~2017-02-06 15:34] MED LIST: ACET500C5 PO; BACTDS PO; METO10TA92 PO
[2017-02-06 16:00] VITALS: Ht 188 cm; Wt 107.0 kg
[2017-02-06] MEDS ORDERED: ACETAMINOPHEN 325 MG TAB PO ONE (17:30)
--- NOTE | 2017-02-06 17:38 | ERD ---
ER Documentation Chief Complaint Date/Time DATE: 02/06/17 TIME: 17:35 Chief Complaint Pt c/o Diarrhea, L wrist wound, and back 1 week. No fever HPI Patient is a 51-year-old homeless male who presents to the ED with multiple complaints. He states that he has a left cut on his arm that he has had for the last "2 years". He states that he was hospitalized last month for cellulitis. He denies any fever or chills. Denies any redness on his arm. Denies drainage. He states that he does use heroin and crystal meth. He also complains of chest pressure and back pain. Also complains of a cough. Denies leg pain or swelling. Denies headache or dizziness. Denies chest pain or difficulty breathing or shortness of breath. States that he sleeps on the cement ground as he is homeless and has developed pain in his back and complains of chest pressure when he takes a deep breath for the last couple of months. ROS All systems reviewed and are negative except as per history of present illness. Medications Home Meds Active Scripts Acetaminophen* (Tylophen*) 500 Mg Capsule, 1 CAP PO Q6H Y for PAIN AND OR ELEVATED TEMP, #20 CAP Prov:ANNE RAGSDALE-C 02/06/17 Cephalexin* (Keflex*) 500 Mg Capsule, 500 MG PO QID for 5 Days, CAP Prov:ANNE RAGSDALE-C 02/06/17 Sulfamethoxazole-Trimethoprim* (Bactrim* DS) 800-160 Mg Tab, 1 TAB PO BID for 5 Days, TAB Prov:ANNE RAGSDALE PA-C 02/06/17 Acetaminophen* (Tylophen*) 500 Mg Capsule, 500 MG PO Q6H Y for SEVERE PAIN LEVEL 7-10, #50 TAB Prov:ROSS TRUJILLO MD 01/07/17 Metoclopramide* (Reglan*) 10 Mg Tablet, 10 MG PO Q6H Y for NAUSEA AND OR VOMITING, #30 TAB Prov:ROSS TRUJILLO MD 01/07/17 Sulfamethoxazole-Trimethoprim* (Bactrim* DS) 800-160 Mg Tab, 1 TAB PO BID, #20 TAB Prov:ROSS TRUJILLO MD 01/07/17 Allergies Allergies: Coded Allergies: No Known Allergy (Unverified , 01/02/17) PMhx/Soc History of Surgery: No Anesthesia Reaction: No Hx Neurological Disorder: No (DENIES) Hx Respiratory Disorders: No (DENIES) Hx Cardiac Disorders: No (DENIES) Hx Psychiatric Problems: No Hx Miscellaneous Medical Probl: Yes (HEP C (+)) Hx Alcohol Use: Yes Hx Substance Use: Yes Hx Tobacco Use: Yes FmHx Family History: No coronary disease, No diabetes, No other Physical Exam Vitals Vital Signs Date Time Temp Pulse Resp B/P Pulse Ox O2 Delivery O2 Flow Rate FiO2 02/06/17 16:00 98.3 100 20 127/83 98 Physical Exam GENERAL: Well-developed, well-nourished male. Appears in no acute distress. HEAD: Normocephalic, atraumatic. EYES: Pupils are equally reactive bilaterally. EOMs grossly intact. No conjunctival erythema. ENT: Moist mucous membranes. No uvula deviation. No kissing tonsils. No exudates. NECK: Supple. No lymphadenopathy or thyromegaly. No meningismus. negative kernig. negative brudinski. LUNG: Clear to auscultation bilaterally. No rhonchi, wheezing, rales or coarse breath sounds. HEART: Regular rate and rhythm. No murmurs, rubs or gallops. ABDOMEN: No scars, ecchymosis or rashes noted. Soft, nontender, and nondistended. Positive bowel sounds in all four quadrants. No rebound tenderness , no guarding. (-) McBurneys point tenderness. No CVA tenderness. BACK: No midline tenderness. Extremities: Equal pulses bilaterally. No peripheral clubbing, cyanosis or edema. No unilateral leg swelling. negative aguila sign. left wrist has a 2 cm cut with no surrounding erythema or swelling. no redness on arm. no streaking. NEUROLOGIC: Alert and oriented. Moving all four extremities. 5/5 strength in all extremities. Normal speech. Steady gait. SKIN: Normal color. Warm and dry. No rashes or lesions. Capillary refill < 2 seconds Results 24 hrs Current Medications Medications (Trade) Dose Ordered Sig/[place] Route PRN Reason Start Time Stop Time Status Last Admin Dose Admin Acetaminophen (Tylenol Tab) 650 mg ONCE ONCE PO 02/06/17 17:30 02/06/17 17:31 DC 02/06/17 18:02 Procedures/MDM ER COURSE: I kept the patient and/or family informed of laboratory and diagnostic imaging results throughout the emergency room course. IMAGING STUDIES [place] [id number] Radiology Main Line: [phone] DIAGNOSTIC IMAGING REPORT Patient: CALIXTO HARRY : 1965 Age: 51 Sex: M MR #: [id number] DOS: 02/06/17 1721 Ordering MD: ANNE RAGSDALE PA-C Location: [facility] Room/Bed: PROCEDURE: XR Chest. CLINICAL INDICATION: Cough. TECHNIQUE: Portable AP erect view of the chest was obtained. COMPARISON: 01/02/2017 FINDINGS: The cardiomediastinal silhouette is within normal limits. The lungs are clear. There is no evidence for pleural effusion, pneumothorax or pulmonary vascular congestion. The osseous structures are intact with no evidence for acute abnormality. RPTAT:HJJR IMPRESSION: No evidence for acute intrathoracic pathology or change from 01/02/2017. Physician Brandon Date Time Electronically viewed and signed by Rome Palmer Physician on 02/06/2017 18:25 JR/ CC: ANNE RAGSDALE PA-C [place] [id number] Radiology Main Line: [phone] DIAGNOSTIC IMAGING REPORT Patient: CALIXTO HARRY : 1965 Age: 51 Sex: M MR #: [id number] DOS: 02/06/17 1721 Ordering MD: ANNE RAGSDALE PA-C Location: [facility] Room/Bed: PROCEDURE: XR Hand. CLINICAL INDICATION: Wound. Left hand pain TECHNIQUE: PA and lateral views of the left hand were obtained. COMPARISON: None available. FINDINGS: Mineralization is within normal limits. No fracture or osseous lesion is identified. Joint spaces are preserved. Soft tissues are unremarkable. No radiopaque foreign body is present. RPTAT:HJJR IMPRESSION: Unremarkable left hand series. Rome Palmer Physician Date Time Electronically viewed and signed by Physician Brandon on 02/06/2017 18:27 JR/ CC: ANNE RAGSDALE PA-C [place] [id number] Radiology Main Line: [phone] DIAGNOSTIC IMAGING REPORT Patient: CALIXTO HARRY : 1965 Age: 51 Sex: M MR #: [id number] DOS: 02/06/17 1721 Ordering MD: ANNE RAGSDALE PA-C Location: [facility] Room/Bed: PROCEDURE: XR Wrist. CLINICAL INDICATION: Left wrist pain TECHNIQUE: PA, lateral and oblique and the scaphoid views of the left wrist were performed. COMPARISON: No prior studies are available for comparison. FINDINGS: No evidence of acute fracture, dislocation, or subluxation is seen. Old healed distal ulnar diaphysis fracture is noted. The bones appear well mineralized. The joint spaces are well preserved. No soft tissue abnormalities are identified and there is no evidence of radiopaque foreign body. RPTAT:HJJR IMPRESSION: Old healed distal ulna fracture without acute osseous abnormality involving the left wrist. Rome Palmer Physician Date Time Electronically viewed and signed by Physician Brandon on 02/06/2017 18:26 JR/ CC: ANNE RAGSDALE PA-C EKG performed, read by Dr. Light 78 bpm, normal sinus rhythm, normal axis, no acute ST segment changes, no T wave inversion MEDICAL DECISION MAKING: This is a 51-year-old male who presents with left arm wound and chest pressure. Vital signs were reviewed. Patient is afebrile. Patient is not hypoxic. Patient is not toxic or ill-appearing. I consulted with Dr. puentes regarding this patient who agreed with the plan. Patient is not toxic or ill- appearing. Patient does not have signs of abscess or cellulitis. There is no streaking. Low suspicion for ACS, PE, AAA, dissection, DVT. Low suspicion for pneumonia, PE, pneumothorax, ACS, epiglottitis, obstruction, TB, pertussis, meningitis, sepsis. Low suspicion for necrotizing fasciitis, SJS, toxic epidermal necrolysis, Kawasaki, erythema multiforme, gangrene, scarlet fever, meningococcemia, sepsis, anaphylaxis, sepsis, deep space infection, or foreign body. Patient likely has mild cellulitis with no drainage and can be treated outpatiently. Low suspicion for osteomyelitis. DISCHARGE: At this time, patient is stable for discharge and outpatient management with no new complaints during the ER course. Patient was sent home with copy of imaging studies and antibiotics to start if wound on the left hand worsens.. Patient will be discharged home with instructions to recheck for new or worsening symptoms such as fever, nausea, weakness, LOC and to follow up with primary care in the next 1-2 days. Patient was advised to return to the ER for any new or worsening symptoms. Plan was discussed and patient and/or family understands and agrees. Home instructions were given. Departure Diagnosis: Primary Impression: Laceration Condition: Stable ANNE RAGSDALE PA-C Feb 06, 2017 17:38
--- NOTE | 2017-02-06 18:25 | RADRPT ---
PROCEDURE: XR Chest. CLINICAL INDICATION: Cough. TECHNIQUE: Portable AP erect view of the chest was obtained. COMPARISON: 01/02/2017 FINDINGS: The cardiomediastinal silhouette is within normal limits. The lungs are clear. There is no evidenc e for pleural effusion, pneumothorax or pulmonary vascular congestion. The osseous structures are i ntact with no evidence for acute abnormality. RPTAT:HJJR IMPRESSION: No evidence for acute intrathoracic pathology or change from 01/02/2017. Rome Palmer Physician Date Time Electronically viewed and signed by Rome Palmer Physician on 02/06/2017 18:25 /
--- NOTE | 2017-02-06 18:26 | RADRPT ---
PROCEDURE: XR Wrist. CLINICAL INDICATION: Left wrist pain TECHNIQUE: PA, lateral and oblique and the scaphoid views of the left wrist were performed. COMPARISON: No prior studies are available for comparison. FINDINGS: No evidence of acute fracture, dislocation, or subluxation is seen. Old healed distal ulnar diaphysi s fracture is noted. The bones appear well mineralized. The joint spaces are well preserved. No soft tissue abnormalities are identified and there is no evidence of radiopaque foreign body. RPTAT:HJJR IMPRESSION: Old healed distal ulna fracture without acute osseous abnormality involving the left wrist. Physician Brandon Date Time Electronically viewed and signed by Physician Brandon on 02/06/2017 18:26 /
--- NOTE | 2017-02-06 18:27 | RADRPT ---
PROCEDURE: XR Hand. CLINICAL INDICATION: Wound. Left hand pain TECHNIQUE: PA and lateral views of the left hand were obtained. COMPARISON: None available. FINDINGS: Mineralization is within normal limits. No fracture or osseous lesion is identified. Joint spaces are preserved. Soft tissues are unremarkable. No radiopaque foreign body is present. RPTAT:HJJR IMPRESSION: Unremarkable left hand series. Physician Brandon Date Time Electronically viewed and signed by Rome Palmer Physician on 02/06/2017 18:27 /
[2017-02-06] MEDS ORDERED: BACTDS PO (18:56)
[2017-02-06] MEDS ORDERED: CEPH-443 PO (18:56)
[2017-02-06] MEDS ORDERED: ACET500C5 PO (18:57)
[2017-02-06 19:26] VITALS: BP 140/83; PULSE 81; RESP 16
== END 2017-02-06 19:28 | disposition home or self-care (01) ==
LOC: FTE 15:34
DX: S61.512A Laceration without foreign body of left wrist, initial encounter (principal); R07.9 Chest pain, unspecified; X58.XXXA Exposure to other specified factors, initial encounter; Y92.9 Unspecified place or not applicable; Z87.891 Personal history of nicotine dependence
CPT/HCPCS: 71010; 73110; 73120; 93005; Z7610